=== PATIENT | female | born 1980 | race Two or more races ===

== ENCOUNTER → 2017-05-17 | Day surgery (SDC) | payer MEDICAID ==
[~2017-05-17] VITALS: Ht 165.1 cm; Wt 107.0 kg
[~2017-05-17] MED LIST: ACETAMINOPHEN/HYDROcodone 325 MG/5 MG TAB PO PRN; BUPIVACAINE HCL PF 0.5% 30 ML VIAL ONE; CHLORHEXIDINE GLUCONATE 4% SOLN 120 ML BTL TOPICAL SCH; IBUP-1129 PO; KETOROLAC TROMETHAMINE 30 MG/ML (IVP) VIAL IM PRN; LACTATED RINGER'S 1000 ML INJ 1,000 ML ONE; LIDOCAINE HCL 2% 50 ML VIAL ONE; MIDAZOLAM HCL 2 MG/2 ML VIAL ONE; NEOMYCIN/POLYMYXIN 1 ML G.U. IRRIGANT ONE; ONDANSETRON HCL 4 MG/2 ML VIAL IV PRN; PROPOFOL 200 MG/20 ML AMP IV ONE
[2017-05-17 12:00] VITALS: BP 131/71; PULSE 63; RESP 16; TEMP 98.4; O2SAT 100
[2017-05-17 14:45] VITALS: TEMP 98.5
[2017-05-17 15:20] VITALS: BP 114/65; PULSE 63; RESP 14; O2SAT 95
--- NOTE | 2017-05-20 08:24 | MP ---
cc: BAR FERNANDEZ M.D. DATE OF SURGERY: 05/17/2017. PREOPERATIVE DIAGNOSIS: Carpal tunnel syndrome of the right hand. POSTOPERATIVE DIAGNOSIS: Carpal tunnel syndrome of the right hand. OPERATIVE PROCEDURE PERFORMED: Carpal tunnel release, right hand. SURGEON: Bar Fernandez MD. DESCRIPTION OF THE PROCEDURE IN DETAIL: The patient was placed on the operating table in the supine position and adequate general anesthesia was administered by the anesthesiologist. The patient's right wrist and hand were prepped and draped in the usual sterile fashion. An Esmarch bandage was used to exsanguinate the upper extremity and the pneumatic tourniquet was inflated to a pressure of 225. A curved incision was made over the carpal tunnel measuring approximately 1-1/2 inches in length. The dissection was carried down through the subcutaneous tissues and the superficial palmaris fibers were retracted as well. The transverse carpal ligament was extremely thickened and in multiple layers and it did require sharp and blunt dissection to expose to it fully and then transect it longitudinally from proximal to distal direction along the ulnar border of the median nerve. The median nerve itself was intact but extremely flattened and compressed. After being assured that we had released the entire carpal tunnel, it was irrigated with normal saline solution. The skin edges and subcutaneous tissue were reapproximated with simple interrupted sutures of 4-0 nylon. Xeroform gauze was applied over the wound and a bulky dressing was applied over this following which the tourniquet was deflated. Examination of the fingers revealed adequate return of circulation. The patient did have prior to closure an injection of the subcutaneous tissues and carpal tunnel area with 5 mL of 0.25% Marcaine plain. Sponge count, needle counts and instrument counts were reported to be correct x2. The estimated blood loss was nil. Hemostasis was adequate with electrocautery. The patient was transferred to the recovery room in satisfactory condition. Bar Fernandez MD [facility] /1:52 PM /8:26 AM
== END | disposition home or self-care (01) ==
LOC: PHSDC 11:34
PROVIDERS: ATTEND Orthopaedic Surgery
DX: G56.03 Carpal tunnel syndrome, bilateral upper limbs (principal)
CPT/HCPCS: 01810; 64721; J2250; J3010; J7120